=== PATIENT | male | born 1975 | race Caucasian/White ===

== ENCOUNTER → 2018-11-07 | Outpatient (CLI) | payer OTHER | END | disposition home or self-care (01) | LOC: LAB SHORT 09:15 → LAB EV 09:15 | DX: L97.509 Non-pressure chronic ulcer of other part of unspecified foot with unspecified severity (principal) | CPT/HCPCS: 87070; 87077; 87147; 87186; 87205 ==

== ENCOUNTER 2018-11-15 07:30 | Day surgery (SDC) | payer OTHER | END 2018-11-15 22:49 | disposition home or self-care (01) | LOC: WOUND 07:30 | DX: E11.621 Type 2 diabetes mellitus with foot ulcer (principal); L97.519 Non-pressure chronic ulcer of other part of right foot with unspecified severity; E11.40 Type 2 diabetes mellitus with diabetic neuropathy, unspecified; I10 Essential (primary) hypertension; J45.909 Unspecified asthma, uncomplicated | CPT/HCPCS: G0463 ==

== ENCOUNTER 2018-11-22 00:17 | Day surgery (SDC) | payer OTHER | END 2018-11-22 22:47 | disposition home or self-care (01) | LOC: WOUND 00:17 | DX: E11.621 Type 2 diabetes mellitus with foot ulcer (principal); L97.519 Non-pressure chronic ulcer of other part of right foot with unspecified severity; E11.40 Type 2 diabetes mellitus with diabetic neuropathy, unspecified; I10 Essential (primary) hypertension; J45.909 Unspecified asthma, uncomplicated | CPT/HCPCS: G0463 ==

== ENCOUNTER 2018-11-29 00:14 | Day surgery (SDC) | payer OTHER | END 2018-11-29 22:45 | disposition home or self-care (01) | LOC: WOUND 00:14 | DX: E11.621 Type 2 diabetes mellitus with foot ulcer (principal); L97.519 Non-pressure chronic ulcer of other part of right foot with unspecified severity | CPT/HCPCS: G0463 ==

== ENCOUNTER 2023-12-22 09:35 | Day surgery (SDC) | payer OTHER ==
[~2023-12-22] VITALS: Ht 188 cm; Wt 125.5 kg
[~2023-12-22 09:35] MED LIST: ATEN25; Bupivacaine 0.5% Inj 50 ML Vial (NON CHARGE) ONE; FISH OIL 1,0001 EA10; JARDIANCE25 MG; METF500; METF500 PO; MULTI-VITAMIN1 EAC2; OLME20 PO; OZEMPIC2 MG/0.75; VENL75ER; Vitamin D1000 UNI1; Zocor20 MG
[2023-12-22] MEDS ORDERED: CeFAZolin Sodium 3,000 MG in NS 100 ML IV SCH (10:10)
[2023-12-22] MEDS ORDERED: Lactated Ringer's 1,000 ML IV ONE ×2 (10:20→11:02)
[2023-12-22] MEDS ORDERED: propofoL 60 ML IV ONE (11:01)
--- NOTE | 2023-12-22 11:10 | NUR ---
12/22/23 1110 Cira Smith PT HAS OPEN WOUND TO RIGHT 4TH TOE, NOTED 2 OPEN AREAS TO PTS PAD OF RIGHT FOOT, DR CHIN AWARE
[2023-12-22] MEDS ORDERED: FentaNYL Citrate 50 MCG/ML 2 ML Injection ONE (11:17)
[2023-12-22] MEDS ORDERED: Bupivacaine 0.5% HCl 5 MG/ML 30MLVIAL INJ ONE (11:18)
[2023-12-22] MEDS ORDERED: Bacitracin Ointment 30 GM XX ONE (11:25)
--- NOTE | 2023-12-22 11:47 | NUR ---
12/22/23 1147 ANEL SAUCEDO PT IS AWAKE, O2 SAT WAS IN LOW 90'S.
[2023-12-22 12:29] VITALS: BP 106/73
== END 2023-12-22 12:29 | disposition home or self-care (01) ==
LOC: ORSCSDS 09:35
PROVIDERS: Podiatrist Foot & Ankle Surgery
PROC: 0Y6V0Z0 Detachment at Right 4th Toe, Complete, Open Approach (ICD-10-PCS; principal; 2023-12-22 11:00)
DX: E11.52 Type 2 diabetes mellitus with diabetic peripheral angiopathy with gangrene (principal); I96 Gangrene, not elsewhere classified; L97.419 Non-pressure chronic ulcer of right heel and midfoot with unspecified severity; M86.8X7 Other osteomyelitis, ankle and foot; L03.031 Cellulitis of right toe; F41.9 Anxiety disorder, unspecified; F32.A Depression, unspecified; G47.33 Obstructive sleep apnea (adult) (pediatric); I10 Essential (primary) hypertension; E66.9 Obesity, unspecified; Z68.35 Body mass index [BMI] 35.0-35.9, adult; Z79.85 Long-term (current) use of injectable non-insulin antidiabetic drugs; Z79.84 Long term (current) use of oral hypoglycemic drugs; Z79.899 Other long term (current) drug therapy
CPT/HCPCS: 82947; 88305; A9270; J0690; J2704; J3010

== ENCOUNTER 2024-04-09 05:24 | Day surgery (SDC) | payer OTHER ==
[~2024-04-09 05:24] MED LIST changes: -Bupivacaine 0.5% Inj 50 ML Vial (NON CHARGE) ONE
== END 2024-04-09 23:49 | disposition home or self-care (01) ==
LOC: WOUND 05:24
DX: E11.621 Type 2 diabetes mellitus with foot ulcer (principal); L97.412 Non-pressure chronic ulcer of right heel and midfoot with fat layer exposed; E11.40 Type 2 diabetes mellitus with diabetic neuropathy, unspecified; I10 Essential (primary) hypertension
CPT/HCPCS: G0463

== ENCOUNTER 2024-04-16 03:06 | Day surgery (SDC) | payer OTHER | END 2024-04-16 23:00 | disposition home or self-care (01) | LOC: WOUND 03:06 | DX: E11.621 Type 2 diabetes mellitus with foot ulcer (principal); L97.419 Non-pressure chronic ulcer of right heel and midfoot with unspecified severity; I10 Essential (primary) hypertension; E11.40 Type 2 diabetes mellitus with diabetic neuropathy, unspecified ==

== ENCOUNTER 2024-04-22 03:19 | Day surgery (SDC) | payer OTHER | END 2024-04-22 23:00 | disposition home or self-care (01) | LOC: WOUND 03:19 | DX: E11.621 Type 2 diabetes mellitus with foot ulcer (principal); L97.412 Non-pressure chronic ulcer of right heel and midfoot with fat layer exposed; E11.40 Type 2 diabetes mellitus with diabetic neuropathy, unspecified; I10 Essential (primary) hypertension ==

== ENCOUNTER 2024-04-24 05:36 | Day surgery (SDC) | payer OTHER | END 2024-04-24 23:00 | disposition home or self-care (01) | LOC: WOUND 05:36 | DX: E11.621 Type 2 diabetes mellitus with foot ulcer (principal); L97.412 Non-pressure chronic ulcer of right heel and midfoot with fat layer exposed; E11.40 Type 2 diabetes mellitus with diabetic neuropathy, unspecified; I10 Essential (primary) hypertension ==

== ENCOUNTER 2024-04-29 04:43 | Day surgery (SDC) | payer OTHER | END 2024-04-29 23:23 | disposition home or self-care (01) | LOC: WOUND 04:43 | DX: E11.621 Type 2 diabetes mellitus with foot ulcer (principal); L97.512 Non-pressure chronic ulcer of other part of right foot with fat layer exposed; I10 Essential (primary) hypertension; E11.40 Type 2 diabetes mellitus with diabetic neuropathy, unspecified ==

== ENCOUNTER 2024-05-06 03:13 | Day surgery (SDC) | payer OTHER | END 2024-05-06 23:00 | disposition home or self-care (01) | LOC: WOUND 03:13 | DX: E11.621 Type 2 diabetes mellitus with foot ulcer (principal); L97.512 Non-pressure chronic ulcer of other part of right foot with fat layer exposed; I10 Essential (primary) hypertension; E11.40 Type 2 diabetes mellitus with diabetic neuropathy, unspecified ==

== ENCOUNTER 2024-05-13 03:46 | Day surgery (SDC) | payer OTHER | END 2024-05-13 23:00 | disposition home or self-care (01) | LOC: WOUND 03:46 | DX: E11.621 Type 2 diabetes mellitus with foot ulcer (principal); L97.412 Non-pressure chronic ulcer of right heel and midfoot with fat layer exposed; I10 Essential (primary) hypertension; E11.40 Type 2 diabetes mellitus with diabetic neuropathy, unspecified ==

== ENCOUNTER 2024-05-20 04:44 | Day surgery (SDC) | payer OTHER | END 2024-05-20 23:00 | disposition home or self-care (01) | LOC: WOUND 04:44 | DX: E11.621 Type 2 diabetes mellitus with foot ulcer (principal); L97.412 Non-pressure chronic ulcer of right heel and midfoot with fat layer exposed; E11.40 Type 2 diabetes mellitus with diabetic neuropathy, unspecified; I10 Essential (primary) hypertension ==

== ENCOUNTER 2024-05-27 04:18 | Day surgery (SDC) | payer OTHER | END 2024-05-27 23:00 | disposition home or self-care (01) | LOC: WOUND 04:18 | DX: E11.621 Type 2 diabetes mellitus with foot ulcer (principal); L97.412 Non-pressure chronic ulcer of right heel and midfoot with fat layer exposed; E11.40 Type 2 diabetes mellitus with diabetic neuropathy, unspecified; I10 Essential (primary) hypertension ==

== ENCOUNTER 2024-06-03 06:27 | Day surgery (SDC) | payer OTHER | END 2024-06-03 23:00 | disposition home or self-care (01) | LOC: WOUND 06:27 | DX: E11.621 Type 2 diabetes mellitus with foot ulcer (principal); L97.412 Non-pressure chronic ulcer of right heel and midfoot with fat layer exposed; E11.40 Type 2 diabetes mellitus with diabetic neuropathy, unspecified; I10 Essential (primary) hypertension ==

== ENCOUNTER 2024-06-10 06:27 | Day surgery (SDC) | payer OTHER | END 2024-06-10 23:00 | disposition home or self-care (01) | LOC: WOUND 06:27 | DX: E11.621 Type 2 diabetes mellitus with foot ulcer (principal); L97.419 Non-pressure chronic ulcer of right heel and midfoot with unspecified severity; E11.40 Type 2 diabetes mellitus with diabetic neuropathy, unspecified; I10 Essential (primary) hypertension; Z87.828 Personal history of other (healed) physical injury and trauma | CPT/HCPCS: G0463 ==

== ENCOUNTER 2024-06-19 02:20 | Day surgery (SDC) | payer OTHER | END 2024-06-19 23:00 | disposition home or self-care (01) | LOC: WOUND 02:20 | DX: E11.621 Type 2 diabetes mellitus with foot ulcer (principal); L97.415 Non-pressure chronic ulcer of right heel and midfoot with muscle involvement without evidence of necrosis; E11.40 Type 2 diabetes mellitus with diabetic neuropathy, unspecified; I10 Essential (primary) hypertension | CPT/HCPCS: G0463 ==

== ENCOUNTER 2024-06-25 00:45 | Day surgery (SDC) | payer OTHER | END 2024-06-25 22:48 | disposition home or self-care (01) | LOC: WOUND 00:45 | DX: E11.621 Type 2 diabetes mellitus with foot ulcer (principal); L97.815 Non-pressure chronic ulcer of other part of right lower leg with muscle involvement without evidence of necrosis; E11.40 Type 2 diabetes mellitus with diabetic neuropathy, unspecified; I10 Essential (primary) hypertension | CPT/HCPCS: G0463 ==

== ENCOUNTER 2024-07-02 00:52 | Day surgery (SDC) | payer OTHER | END 2024-07-02 23:00 | disposition home or self-care (01) | LOC: WOUND 00:52 | DX: E11.621 Type 2 diabetes mellitus with foot ulcer (principal); L97.415 Non-pressure chronic ulcer of right heel and midfoot with muscle involvement without evidence of necrosis; E11.40 Type 2 diabetes mellitus with diabetic neuropathy, unspecified; I10 Essential (primary) hypertension | CPT/HCPCS: G0463 ==

== ENCOUNTER 2024-07-09 00:20 | Day surgery (SDC) | payer OTHER | END 2024-07-09 23:00 | disposition home or self-care (01) | LOC: WOUND 00:20 | DX: E11.621 Type 2 diabetes mellitus with foot ulcer (principal); L97.415 Non-pressure chronic ulcer of right heel and midfoot with muscle involvement without evidence of necrosis; E11.40 Type 2 diabetes mellitus with diabetic neuropathy, unspecified; I10 Essential (primary) hypertension | CPT/HCPCS: G0463 ==

== ENCOUNTER 2024-07-16 03:43 | Day surgery (SDC) | payer OTHER | END 2024-07-16 23:07 | disposition home or self-care (01) | LOC: WOUND 03:43 | DX: E11.621 Type 2 diabetes mellitus with foot ulcer (principal); L97.415 Non-pressure chronic ulcer of right heel and midfoot with muscle involvement without evidence of necrosis; E11.40 Type 2 diabetes mellitus with diabetic neuropathy, unspecified; I10 Essential (primary) hypertension | CPT/HCPCS: G0463 ==

== ENCOUNTER 2024-07-23 03:59 | Day surgery (SDC) | payer OTHER | END 2024-07-23 23:03 | disposition home or self-care (01) | LOC: WOUND 03:59 | DX: E11.621 Type 2 diabetes mellitus with foot ulcer (principal); L97.415 Non-pressure chronic ulcer of right heel and midfoot with muscle involvement without evidence of necrosis; E11.40 Type 2 diabetes mellitus with diabetic neuropathy, unspecified; I10 Essential (primary) hypertension | CPT/HCPCS: G0463 ==

== ENCOUNTER 2024-08-06 02:42 | Day surgery (SDC) | payer OTHER | END 2024-08-06 23:00 | disposition home or self-care (01) | LOC: WOUND 02:42 | DX: E11.621 Type 2 diabetes mellitus with foot ulcer (principal); L97.415 Non-pressure chronic ulcer of right heel and midfoot with muscle involvement without evidence of necrosis; E11.40 Type 2 diabetes mellitus with diabetic neuropathy, unspecified; I10 Essential (primary) hypertension | CPT/HCPCS: G0463 ==

== ENCOUNTER → 2024-08-13 | Day surgery (SDC) | payer OTHER | LOC: WOUND 02:26 | DX: E11.621 Type 2 diabetes mellitus with foot ulcer (principal); L97.412 Non-pressure chronic ulcer of right heel and midfoot with fat layer exposed; E11.40 Type 2 diabetes mellitus with diabetic neuropathy, unspecified; I10 Essential (primary) hypertension | CPT/HCPCS: G0463 ==

== ENCOUNTER 2024-08-20 04:47 | Day surgery (SDC) | payer OTHER | END 2024-08-20 22:39 | disposition home or self-care (01) | LOC: WOUND 04:47 | DX: E11.621 Type 2 diabetes mellitus with foot ulcer (principal); L97.412 Non-pressure chronic ulcer of right heel and midfoot with fat layer exposed; E11.40 Type 2 diabetes mellitus with diabetic neuropathy, unspecified; I10 Essential (primary) hypertension | CPT/HCPCS: G0463 ==

== ENCOUNTER 2024-08-28 02:08 | Day surgery (SDC) | payer OTHER | END 2024-08-28 23:00 | disposition home or self-care (01) | LOC: WOUND 02:08 | DX: E11.621 Type 2 diabetes mellitus with foot ulcer (principal); L97.512 Non-pressure chronic ulcer of other part of right foot with fat layer exposed; E11.40 Type 2 diabetes mellitus with diabetic neuropathy, unspecified; I10 Essential (primary) hypertension | CPT/HCPCS: G0463 ==

== ENCOUNTER → 2024-09-03 | Day surgery (SDC) | payer OTHER | LOC: WOUND 03:54 | DX: E11.621 Type 2 diabetes mellitus with foot ulcer (principal); L97.412 Non-pressure chronic ulcer of right heel and midfoot with fat layer exposed; E11.40 Type 2 diabetes mellitus with diabetic neuropathy, unspecified; I10 Essential (primary) hypertension | CPT/HCPCS: G0463 ==

== ENCOUNTER 2024-09-10 03:20 | Day surgery (SDC) | payer OTHER | END 2024-09-10 23:33 | disposition home or self-care (01) | LOC: WOUND 03:20 | DX: E11.621 Type 2 diabetes mellitus with foot ulcer (principal); E11.40 Type 2 diabetes mellitus with diabetic neuropathy, unspecified; I10 Essential (primary) hypertension | CPT/HCPCS: G0463 ==

== ENCOUNTER 2025-02-19 14:24 | Emergency (ER) | payer OTHER ==
[~2025-02-19] VITALS: Ht 188 cm; Wt 124.7 kg
[2025-02-19 15:38] LABS: BASOPHILS ABSOLUTE AUTO 0.06 K/mm3 (0.00-0.23); BASOPHILS PERCENT AUTO 1 % (0-2); EOSINOPHILS ABSOLUTE AUTO 0.16 K/mm3 (0.00-0.68); EOSINOPHILS PERCENT AUTO 2 % (0-6); Hematocrit 47.6 % (37.0-53.0); Hemoglobin 16.0 g/dL (13.5-17.5); IMMATURE GRAN ABSOLUTE AUTO 0.03 K/mm3 (0.00-0.10); IMMATURE GRAN PERCENT AUTO 0 % (0-1); LYMPHOCYTES ABSOLUTE AUTO 2.83 K/mm3 (0.84-5.20); LYMPHOCYTES PERCENT AUTO 29 % (21-46); MONOCYTES ABSOLUTE AUTO 0.85 K/mm3 (0.16-1.47); MONOCYTES PERCENT AUTO 9 % (4-13); Mean Corpuscular HGB Conc 33.6 g/dL (31.5-36.5); Mean Corpuscular Volume 88 fL (80-100); NEUTROPHILS ABSOLUTE AUTO 5.96 K/mm3 (1.96-9.15); NEUTROPHILS PERCENT AUTO 60 % (41-73); NRBC ABSOLUTE 0.00 K/mm3 (0.00-0.02); NRBC Auto 0.0 /100 WBC (0.0-0.2); Platelet Count 256 K/mm3 (150-400); RDW Coefficient Variation 13.2 % (11.7-14.2); RDW Standard Deviation 42.6 fL (35.1-46.3)
[2025-02-19 15:47] LABS: C-REACTIVE PROTEIN, EXT RANGE 1.27 mg/dL (0.000-0.300)
[2025-02-19 15:49] LABS: Alanine Aminotransfer (ALT/SGP 54.0 U/L (12-78); Albumin, Blood 4.1 g/dL (3.4-5.0); Albumin/Globulin Ratio 1.0 (0.8-1.8); Anion Gap 9.0 mmol/L (3-11); Aspartate Aminotrans (AST/SGOT 31.0 U/L (12-37); Bilirubin, Total 0.6 mg/dL (0.1-1.0); Blood Urea Nitrogen 17.0 mg/dL (8-24); CO2, Blood 27.0 mmol/L (21-32); Calcium, Blood 10.1 mg/dL (8.5-10.1); Chloride, Blood 103.0 mmol/L (98-108); Creatinine, Blood 1.22 mg/dL (0.60-1.20); Globulin, Blood 4.1 g/dL (2.2-4.0); Glucose, Blood 154.0 mg/dL (70-99); Potassium, Blood 4.3 mmol/L (3.5-5.5); Sodium, Blood 135.0 mmol/L (136-145); Total Protein, Blood 8.2 g/dL (6.4-8.2)
[2025-02-19] MEDS ORDERED: NS 1,000 ML IV SCH (17:50)
[2025-02-19] MEDS ORDERED: Ketorolac Tromethamine 30mg Vial IV ONE (17:50)
[2025-02-19] MEDS ORDERED: Colchicine 0.6 MG TAB PO ONE (18:25)
[2025-02-19 19:36] VITALS: BP 131/79
[2025-02-19 19:38] LABS: WBC Count, Synovial Fluid 9040 /mm3 (0-180)
[2025-02-19 19:56] LABS: RBC Count, Synovial Fluid 594 /mm3 (0-0)
[2025-02-19 19:59] LABS: Appearance, Synovial Fluid Cloudy (Clear); Color, Synovial Fluid Yellow (None-P Yel)
[2025-02-19 20:09] LABS: Lymphs, Synovial Fluid 1 % (0-15); Monocytes/Macrophages, Synovia 16 % (0-65); Neutrophils, Synovial Fluid 83 % (0-24)
== END 2025-02-19 19:40 | disposition home or self-care (01) ==
LOC: ER 14:24
PROVIDERS: Emergency Medicine; Student in an Organized Health Care Education/Training Program
DX: M25.462 Effusion, left knee (principal); E11.9 Type 2 diabetes mellitus without complications; I10 Essential (primary) hypertension; Z79.84 Long term (current) use of oral hypoglycemic drugs; Z79.85 Long-term (current) use of injectable non-insulin antidiabetic drugs; Z79.899 Other long term (current) drug therapy
CPT/HCPCS: 20611; 73562-LT; 80053; 85025; 85651; 86140; 87070; 87075; 87205; 89051; 89060; 96361-59; 96374-59; 99283-25; A9270; J1885; J7030

== ENCOUNTER 2025-02-28 00:02 | Day surgery (SDC) | payer OTHER ==
[2025-02-28] MEDS ORDERED: Lidocaine HCl 4% Cream 5 GM ONE (07:55)
== END 2025-02-28 23:00 | disposition home or self-care (01) ==
LOC: WOUND 00:02
DX: E11.621 Type 2 diabetes mellitus with foot ulcer (principal); L97.512 Non-pressure chronic ulcer of other part of right foot with fat layer exposed; E11.40 Type 2 diabetes mellitus with diabetic neuropathy, unspecified; I10 Essential (primary) hypertension; G47.30 Sleep apnea, unspecified; Z79.84 Long term (current) use of oral hypoglycemic drugs; Z89.421 Acquired absence of other right toe(s)
CPT/HCPCS: A9270; G0463

== ENCOUNTER 2025-03-07 01:10 | Day surgery (SDC) | payer OTHER ==
[2025-03-07] MEDS ORDERED: Lidocaine HCl 4% Cream 5 GM ONE (14:18)
== END 2025-03-07 23:00 | disposition home or self-care (01) ==
LOC: WOUND 01:10
DX: E11.621 Type 2 diabetes mellitus with foot ulcer (principal); L97.512 Non-pressure chronic ulcer of other part of right foot with fat layer exposed; E11.40 Type 2 diabetes mellitus with diabetic neuropathy, unspecified
CPT/HCPCS: A9270; G0463

== ENCOUNTER 2025-03-14 00:37 | Day surgery (SDC) | payer OTHER | END 2025-03-14 23:00 | disposition home or self-care (01) | LOC: WOUND 00:37 | DX: E11.621 Type 2 diabetes mellitus with foot ulcer (principal); L97.512 Non-pressure chronic ulcer of other part of right foot with fat layer exposed; E11.40 Type 2 diabetes mellitus with diabetic neuropathy, unspecified | CPT/HCPCS: G0463 ==

== ENCOUNTER 2025-03-21 02:30 | Day surgery (SDC) | payer OTHER | END 2025-03-21 23:00 | disposition home or self-care (01) | LOC: WOUND 02:30 | DX: E11.621 Type 2 diabetes mellitus with foot ulcer (principal); L97.512 Non-pressure chronic ulcer of other part of right foot with fat layer exposed; E11.40 Type 2 diabetes mellitus with diabetic neuropathy, unspecified; E11.65 Type 2 diabetes mellitus with hyperglycemia | CPT/HCPCS: G0463 ==

== ENCOUNTER 2025-04-02 01:19 | Day surgery (SDC) | payer OTHER | END 2025-04-02 23:00 | disposition home or self-care (01) | LOC: WOUND 01:19 | DX: E11.621 Type 2 diabetes mellitus with foot ulcer (principal); L97.515 Non-pressure chronic ulcer of other part of right foot with muscle involvement without evidence of necrosis; E11.40 Type 2 diabetes mellitus with diabetic neuropathy, unspecified | CPT/HCPCS: G0463 ==

== ENCOUNTER 2025-04-09 00:30 | Day surgery (SDC) | payer OTHER | END 2025-04-09 23:21 | disposition home or self-care (01) | LOC: WOUND 00:30 | DX: E11.621 Type 2 diabetes mellitus with foot ulcer (principal); L97.515 Non-pressure chronic ulcer of other part of right foot with muscle involvement without evidence of necrosis; E11.40 Type 2 diabetes mellitus with diabetic neuropathy, unspecified; Z79.84 Long term (current) use of oral hypoglycemic drugs; Z79.85 Long-term (current) use of injectable non-insulin antidiabetic drugs; Z79.899 Other long term (current) drug therapy ==

== ENCOUNTER 2025-04-18 06:52 | Day surgery (SDC) | payer OTHER ==
[2025-04-18] MEDS ORDERED: Lidocaine HCl 4% Cream 5 GM ONE (15:38)
== END 2025-04-18 23:00 | disposition home or self-care (01) ==
LOC: WOUND 06:52
DX: E11.621 Type 2 diabetes mellitus with foot ulcer (principal); L97.512 Non-pressure chronic ulcer of other part of right foot with fat layer exposed; E11.40 Type 2 diabetes mellitus with diabetic neuropathy, unspecified
CPT/HCPCS: A9270; G0463